=== PATIENT | male | born 2000 | race Caucasian/White ===

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

== ENCOUNTER 2025-09-21 20:26 | Emergency (ER) | payer OTHER ==
[~2025-09-21] VITALS: Ht 170.2 cm; Wt 63.5 kg
[~2025-09-21 20:26] MED LIST: ALBU4TAB9 PO
[2025-09-21] MEDS: TETANUS/DIPHTH/ACEL. PERTUSSIS 0.5 ML SYR IM.IMMUN ONE (23:51)
[2025-09-22] MEDS ORDERED: CEPH500C PO (00:09)
[2025-09-22] MEDS: CEPHALEXIN 500 MG CAP PO ONE (00:16)
[2025-09-22] MEDS: OXYCODONE/APAP 5MG/325MG(HOME DOSE PACK) PO ONE (00:37)
[2025-09-22 00:41] VITALS: BP 118/71; TEMP 99; O2SAT 97
== END 2025-09-22 00:44 | disposition home or self-care (01) ==
LOC: M ED 20:26
DX: S92.422A Displaced fracture of distal phalanx of left great toe, initial encounter for closed fracture (principal); W20.8XXA Other cause of strike by thrown, projected or falling object, initial encounter; J45.909 Unspecified asthma, uncomplicated; Y92.89 Other specified places as the place of occurrence of the external cause; Y93.89 Activity, other specified; Y99.0 Civilian activity done for income or pay; Z23 Encounter for immunization; Z79.2 Long term (current) use of antibiotics; Z79.52 Long term (current) use of systemic steroids

== ENCOUNTER → 2025-11-04 | Outpatient (REF) | payer OTHER ==
[~2025-11-04] MED LIST changes: +CEPH500C PO
[2025-11-04 17:48] LABS: CALCIUM LEVEL 9.3 MG/DL (8.5-10.1); CARBON DIOXIDE LEVEL 31 MMOL/L (20-31); CHLORIDE LEVEL 107 MMOL/L (98-107); CHOLESTEROL LEVEL 140 MG/DL (<200); CHOLESTEROL RISK RATIO 3.43 (<5); CREATININE FOR GFR 1.16 MG/DL (0.70-1.30); GLOMERULAR FILTRATION RATE > 90.0 (>60); LDL CHOLESTEROL 77.2 MG/DL (<100); NON-HDL-C 99.2 MG/DL; POTASSIUM SERUM 4.1 MMOL/L (3.5-5.1); SODIUM LEVEL 142 MMOL/L (136-145); TRIGLYCERIDES LEVEL 110 MG/DL (<150)
== END ==
LOC: M SFHCLERA 13:40
PROVIDERS: ATTEND Internal Medicine
DX: Z00.00 Encounter for general adult medical examination without abnormal findings (principal); F41.3 Other mixed anxiety disorders